=== PATIENT | female | born 2005 | race African-American/Black ===

== ENCOUNTER 2025-02-13 02:09 | Emergency (ER) | payer SELFPAY ==
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
[2025-02-13 02:22] VITALS: BP 122/54; PULSE 119; RESP 20; TEMP 37.2; O2SAT 96; BMI 22.3
[2025-02-13] MEDS: Diphth,Pertus(ACell),Tet Adult 0.5 ML SYRINGE IM (02:34)
[2025-02-13 02:36] LABS: Hematocrit 39.5 % (37.0-47.0); Hemoglobin 13.3 g/dl (12.0-16.0); Imm Gran Abs Auto 0.04 X10*3/uL (0.00-0.03); Imm Gran Pct Auto 0.3 % (0.0-0.4); Lymphocytes Absolute Auto 3.2 X10*3/uL (1.2-4.9); MANUAL DIFF FLAG NO; Mean Corpuscular HGB Conc 33.7 g/dl (31.0-35.0); Mean Corpuscular Hemoglobin 29.3 pg (27.0-33.0); Mean Corpuscular Volume 87.0 fL (80.0-98.0); NRBC Abs Auto 0.000 X10*3/uL (0.0-0.012); NRBC Pct Auto 0.0 /100WBC (0.0-0.2); Platelet Count 318 X10*3/uL (160-400); Red Blood Count 4.54 X10*6/uL (4.20-5.50); White Blood Count 11.4 X10*3/uL (4.8-10.8)
[2025-02-13 02:58] LABS: Alanine Aminotransferase 16 U/L (0-31); Albumin Level 4.7 g/dL (3.5-5.0); Alkaline Phosphatase 81 U/L (39-117); Anion Gap 17 (12-20); Aspartate Amino Transferase 22 U/L (5-31); Blood Urea Nitrogen 6 mg/dL (9-16); Calcium 8.9 mg/dL (8.4-10.2); Carbon Dioxide 25 mmol/L (22-29); Chloride 110 mmol/L (96-108); Creatinine Clr Calc Pharmacy 123.0; Estimated Glomerular Filt Rate > 60; Magnesium 2.2 mg/dL (1.6-2.6); Potassium 3.5 mmol/L (3.3-5.1); Sodium 148 mmol/L (135-145); Total Protein 7.5 g/dL (6.5-8.0)
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
[2025-02-13 05:18] VITALS: BP 133/77; PULSE 78; RESP 18; O2SAT 100
--- NOTE | 2025-02-13 05:35 | MHC.EDTECH ---
patient's friend is at bedside, she requested if any of the dried blood can be cleaned off. I was able to wipe some of it off but explained to friend that alot if it was patient's raw skin, she was understanding.
[2025-02-13 06:51] VITALS: BP 133/77; PULSE 78; RESP 18; TEMP 37.2; O2SAT 100
== END 2025-02-13 06:51 | disposition home or self-care (01) ==
PROVIDERS: Physician Assistant Medical; Emergency Provider Emergency Medicine
DX: S00.83XA Contusion of other part of head, initial encounter (principal); S00.81XA Abrasion of other part of head, initial encounter; S40.812A Abrasion of left upper arm, initial encounter; S40.811A Abrasion of right upper arm, initial encounter; S80.812A Abrasion, left lower leg, initial encounter; S80.811A Abrasion, right lower leg, initial encounter; V86.66XA Passenger of dirt bike or motor/cross bike injured in nontraffic accident, initial encounter; M54.2 Cervicalgia; Y93.89 Activity, other specified; Y92.9 Unspecified place or not applicable; Y99.9 Unspecified external cause status; Z23 Encounter for immunization
CPT/HCPCS: 36415; 70450; 70486; 72125; 80053; 80307; 83735; 84702; 85025; 90471; 90715; 96365; 99284; 99285; J0131

== ENCOUNTER → 2025-02-13 02:20 | Outpatient (BNV) | payer SELFPAY | PROVIDERS: Emergency Provider Emergency Medicine; Visit Provider Radiology Diagnostic Radiology | DX: M54.2 Cervicalgia (principal); R22.0 Localized swelling, mass and lump, head; V86.56XA Driver of dirt bike or motor/cross bike injured in nontraffic accident, initial encounter | CPT/HCPCS: 70450; 70486; 72125 ==